=== PATIENT | male | born 1940 | race Caucasian/White ===

== ENCOUNTER 2019-01-30 15:47 | Inpatient (IN) ==
[2019-01-30 16:45] LABS: Basophils % 0.2 %; Eosinophils % 0.3 %; Immature Granulocytes % 1.1 % (0-4); Lymphocytes # 0.6 K/mcL (0.6-4.6); Lymphocytes % 4.8 %; Mean Corpuscular HGB Conc 30.3 g/dL (31.6-35.5); Mean Corpuscular Hemoglobin 29.1 pg (28.0-33.3); Mean Corpuscular Volume 95.9 fL (83.0-100.0); Mean Platelet Volume 8.5 fL (9.4-12.4); Monocytes # 0.7 K/mcL (0.0-1.3); Neutrophils # 10.8 K/mcL (1.6-8.9); Platelet Count 276 K/mcL (140-400); Red Blood Count 3.44 M/mcL (4.19-5.50); Red Cell Distribution Width 15.8 % (11.5-14.5); Segmented Neutrophils % 87.6 %; White Blood Count 12.4 K/mcL (4.3-11.1)
[2019-01-30 16:48] LABS: VBG HCO3 21 mEq/L (21-27); VBG PCO2 44 mmHg (41-51); VBG PH 7.29 pH Units (7.32-7.42); VBG PO2 187 mmHg (25-50)
[2019-01-30 16:52] LABS: INR 1.1; Prothrombin Time 12.1 Seconds (9.4-12.1)
[2019-01-30 16:55] LABS: Activated Partial Thrombo Time 35.5 Seconds (26.0-36.0)
[2019-01-30 17:07] LABS: Alanine Aminotransferase 21 Units/L (7-52); Albumin 3.4 g/dL (3.5-5.7); Albumin/Globulin Ratio 1.2 (1.1-2.2); Alkaline Phosphatase 80 Units/L (34-104); Aspartate Amino Transferase 17 Units/L (13-39); BUN/Creatinine Ratio 20 (6-26); Bilirubin,Indirect 0.3 mg/dL (0.0-1.2); Bilirubin,Total 0.3 mg/dL (0.3-1.0); Blood Urea Nitrogen 18 mg/dL (8-23); Calcium 8.8 mg/dL (8.6-10.3); Carbon Dioxide 20 mEq/L (23-29); Chloride 107 mEq/L (98-107); Globulin 2.9 g/dL (2.4-3.5); Glucose 113 mg/dL (70-105); Lipase 20 Units/L (11-82); Magnesium 1.8 mg/dL (1.6-2.6); Osmolality,Calculated 283 (280-300); Potassium 5.5 mEq/L (3.5-5.1); Sodium 135 mEq/L (136-145); Total Protein 6.3 g/dL (6.4-8.9); Troponin I < 0.03 ng/mL (< 0.04); eGFR For African Americans > 60 (> 60); eGFR For Non-African Americans > 60 (> 60)
[2019-01-30] MEDS ORDERED: Naloxone 0.4 MG/ML INJ IVP PRN (17:54)
[2019-01-30] MEDS ORDERED: *HR* OxyCODONE/APAP 5/325 TABLET PO PRN (17:58)
[2019-01-30] MEDS ORDERED: Furosemide 40 MG/4 ML VIAL IVP SCH (18:00)
[2019-01-30] MEDS ORDERED: tiZANidine 4 MG TABLET PO PRN (21:00)
[2019-01-30] MEDS ORDERED: NON-FORMULARY MEDICATION 1 EACH EACH (Potassium Chloride [Klor-Con 10] 20 MEQ) PO SCH (21:00)
[2019-01-31 04:22] LABS: Basophils % 0.3 %; Eosinophils # 0.2 K/mcL (0.0-0.6); Eosinophils % 1.9 %; Hematocrit 30.2 % (37.5-50.1); Immature Granulocytes % 1.1 % (0-4); Lymphocytes # 0.9 K/mcL (0.6-4.6); Lymphocytes % 7.5 %; Mean Corpuscular HGB Conc 29.8 g/dL (31.6-35.5); Mean Corpuscular Hemoglobin 29.6 pg (28.0-33.3); Mean Corpuscular Volume 99.3 fL (83.0-100.0); Mean Platelet Volume 8.7 fL (9.4-12.4); Monocytes # 1.1 K/mcL (0.0-1.3); Monocytes % 9.9 %; Neutrophils # 8.9 K/mcL (1.6-8.9); Platelet Count 272 K/mcL (140-400); Red Blood Count 3.04 M/mcL (4.19-5.50); Red Cell Distribution Width 15.9 % (11.5-14.5); Segmented Neutrophils % 79.3 %; White Blood Count 11.3 K/mcL (4.3-11.1)
[2019-01-31 04:48] LABS: Troponin I < 0.03 ng/mL (< 0.04)
[2019-01-31 05:06] LABS: BUN/Creatinine Ratio 21 (6-26); Blood Urea Nitrogen 16 mg/dL (8-23); Calcium 8.5 mg/dL (8.6-10.3); Carbon Dioxide 19 mEq/L (23-29); Chloride 109 mEq/L (98-107); Glucose 82 mg/dL (70-105); Osmolality,Calculated 284 (280-300); Potassium 4.9 mEq/L (3.5-5.1); Sodium 137 mEq/L (136-145); eGFR For African Americans > 60 (> 60); eGFR For Non-African Americans > 60 (> 60)
[2019-01-31] MEDS: *HR* Heparin 5,000 UNIT/ML VIAL SQ SCH ×2 (06:29→16:19)
[2019-01-31] MEDS ORDERED: Perflutren Lipid Microsphere 1.3 ML in 0.9 % Sodium Chloride 8.7 ML IVP ONE (07:46)
[2019-01-31] MEDS ORDERED: hydrOXYzine pamoate 25 MG CAPSULE PO PRN ×2 (08:43→19:20)
[2019-01-31] MEDS: Furosemide 40 MG/4 ML VIAL IVP SCH ×2 (08:57→16:19)
[2019-01-31] MEDS ORDERED: amLODIPine 5 MG TABLET PO SCH (09:00)
[2019-01-31] MEDS ORDERED: predniSONE 10 MG TABLET PO SCH (09:00)
[2019-01-31 13:00] LABS: Bilirubin,Urine Negative (Negative); Blood,Urine Negative (Negative); Clarity,Urine Clear (Clear); Color,Urine Yellow (Yellow); Glucose,Urine (UA) Normal (Normal); Ketones,Urine Negative (Negative); Leukocyte Esterase,Urine Negative (Negative); Nitrite,Urine Negative (Negative); PH,Urine 5.5 pH Units (5.0-8.0); Protein,Urine Negative (Neg-Trace); Urobilinogen,Urine Normal (Normal)
[2019-01-31] MEDS ORDERED: *HR* LORazepam 2 MG/ML VIAL IVP ONE (16:28)
[2019-01-31 17:52] LABS: ABG Base Excess -3 mEq/L (-2 to 3); ABG HCO3 26 mEq/L (21-27); ABG Oxygen Saturation 87 % (95-98); ABG PCO2 67 mmHg (35-45); ABG PO2 67 mmHg (85-104); ABG TCO2 28 mEq/L (20-26)
[2019-01-31] MEDS ORDERED: Naloxone 0.4 MG/ML INJ IVP PRN (19:20)
[2019-01-31] MEDS ORDERED: tiZANidine 4 MG TABLET PO PRN (19:20)
[2019-01-31 22:00] LABS: ABG Base Excess -1 mEq/L (-2 to 3); ABG HCO3 25 mEq/L (21-27); ABG Oxygen Saturation 96 % (95-98); ABG PCO2 50 mmHg (35-45); ABG PH 7.31 pH Units (7.32-7.45); ABG PO2 92 mmHg (85-104); ABG TCO2 27 mEq/L (20-26); Blood Gas Modality BiLevel
[2019-02-01 02:18] LABS: Basophils % 0.3 %; Eosinophils # 0.1 K/mcL (0.0-0.6); Eosinophils % 0.9 %; Hematocrit 30.4 % (37.5-50.1); Hemoglobin 9.3 g/dL (12.9-16.9); Immature Granulocytes % 0.7 % (0-4); Lymphocytes # 0.6 K/mcL (0.6-4.6); Lymphocytes % 6.2 %; Mean Corpuscular HGB Conc 30.6 g/dL (31.6-35.5); Mean Corpuscular Hemoglobin 29.6 pg (28.0-33.3); Mean Corpuscular Volume 96.8 fL (83.0-100.0); Mean Platelet Volume 8.5 fL (9.4-12.4); Monocytes # 0.8 K/mcL (0.0-1.3); Monocytes % 8.1 %; Neutrophils # 8.2 K/mcL (1.6-8.9); Platelet Count 253 K/mcL (140-400); Red Blood Count 3.14 M/mcL (4.19-5.50); Red Cell Distribution Width 15.7 % (11.5-14.5); Segmented Neutrophils % 83.8 %; White Blood Count 9.8 K/mcL (4.3-11.1)
[2019-02-01 02:27] LABS: BUN/Creatinine Ratio 21 (6-26); Blood Urea Nitrogen 14 mg/dL (8-23); Calcium 8.3 mg/dL (8.6-10.3); Carbon Dioxide 26 mEq/L (23-29); Chloride 110 mEq/L (98-107); Glucose 74 mg/dL (70-105); Osmolality,Calculated 289 (280-300); Potassium 3.4 mEq/L (3.5-5.1); Sodium 140 mEq/L (136-145); eGFR For African Americans > 60 (> 60); eGFR For Non-African Americans > 60 (> 60)
[2019-02-01] MEDS: *HR* Heparin 5,000 UNIT/ML VIAL SQ SCH ×2 (05:23→18:07)
[2019-02-01 05:29] LABS: ABG Base Excess 0 mEq/L (-2 to 3); ABG HCO3 26 mEq/L (21-27); ABG Oxygen Saturation 98 % (95-98); ABG PCO2 48 mmHg (35-45); ABG PH 7.34 pH Units (7.32-7.45); ABG PO2 103 mmHg (85-104); ABG TCO2 27 mEq/L (20-26)
[2019-02-01] MEDS ORDERED: Dexmedetomidine HCl 400 MCG/100 ML MLS IVC ONE (06:33)
[2019-02-01] MEDS: Dexmedetomidine HCl 400 MCG/100 ML MLS IVC SCH (06:36)
[2019-02-01 06:50] LABS: ABG Base Excess 0 mEq/L (-2 to 3); ABG HCO3 25 mEq/L (21-27); ABG Oxygen Saturation 90 % (95-98); ABG PCO2 39 mmHg (35-45); ABG PH 7.42 pH Units (7.32-7.45); ABG PO2 58 mmHg (85-104); ABG TCO2 26 mEq/L (20-26)
[2019-02-01] MEDS ORDERED: Aspirin Enteric Coated 325 MG Tablet PO SCH (09:00)
[2019-02-01] MEDS: Furosemide 40 MG/4 ML VIAL IVP SCH ×2 (09:17→16:37)
[2019-02-01] MEDS: amLODIPine 5 MG TABLET PO SCH (09:18)
[2019-02-01] MEDS: predniSONE 10 MG TABLET PO SCH (09:18)
[2019-02-01] MEDS: Aspirin Enteric Coated 325 MG Tablet PO SCH (09:18)
[2019-02-02] MEDS: Dexmedetomidine HCl 400 MCG/100 ML MLS IVC SCH ×3 (00:09→17:01)
[2019-02-02] MEDS: *HR* OxyCODONE/APAP 5/325 TABLET PO PRN ×3 (00:14→22:52)
[2019-02-02 01:06] LABS: Basophils % 0.3 %; Eosinophils # 0.2 K/mcL (0.0-0.6); Hematocrit 29.6 % (37.5-50.1); Hemoglobin 9.2 g/dL (12.9-16.9); Immature Granulocytes % 0.5 % (0-4); Lymphocytes # 0.9 K/mcL (0.6-4.6); Lymphocytes % 9.5 %; Mean Corpuscular HGB Conc 31.1 g/dL (31.6-35.5); Mean Corpuscular Hemoglobin 29.6 pg (28.0-33.3); Mean Corpuscular Volume 95.2 fL (83.0-100.0); Mean Platelet Volume 8.8 fL (9.4-12.4); Monocytes % 10.8 %; Neutrophils # 7.1 K/mcL (1.6-8.9); Platelet Count 255 K/mcL (140-400); Red Blood Count 3.11 M/mcL (4.19-5.50); Red Cell Distribution Width 15.9 % (11.5-14.5); Segmented Neutrophils % 76.9 %; White Blood Count 9.2 K/mcL (4.3-11.1)
[2019-02-02 01:24] LABS: BUN/Creatinine Ratio 18 (6-26); Blood Urea Nitrogen 14 mg/dL (8-23); Calcium 8.1 mg/dL (8.6-10.3); Carbon Dioxide 27 mEq/L (23-29); Chloride 103 mEq/L (98-107); Glucose 82 mg/dL (70-105); Osmolality,Calculated 286 (280-300); Potassium 3.4 mEq/L (3.5-5.1); Sodium 138 mEq/L (136-145); eGFR For African Americans > 60 (> 60); eGFR For Non-African Americans > 60 (> 60)
[2019-02-02] MEDS: *HR* Heparin 5,000 UNIT/ML VIAL SQ SCH ×2 (05:21→17:04)
[2019-02-02] MEDS: Furosemide 40 MG/4 ML VIAL IVP SCH ×2 (08:03→17:00)
[2019-02-02] MEDS: amLODIPine 5 MG TABLET PO SCH (08:10)
[2019-02-02] MEDS: predniSONE 10 MG TABLET PO SCH (08:11)
[2019-02-02] MEDS: Aspirin Enteric Coated 325 MG Tablet PO SCH (08:11)
[2019-02-02] MEDS ORDERED: Ipratropium/Albuterol Neb 3 ML IH PRN (11:03)
[2019-02-02] MEDS ORDERED: Albuterol 2.5 MG/3 ML NEBULIZER IH PRN (11:03)
[2019-02-03] MEDS: Dexmedetomidine HCl 400 MCG/100 ML MLS IVC SCH ×3 (00:21→11:13)
[2019-02-03 02:53] LABS: Basophils % 0.4 %; Eosinophils # 0.2 K/mcL (0.0-0.6); Eosinophils % 2.7 %; Hematocrit 29.3 % (37.5-50.1); Hemoglobin 9.3 g/dL (12.9-16.9); Immature Granulocytes % 0.4 % (0-4); Lymphocytes # 0.6 K/mcL (0.6-4.6); Lymphocytes % 8.3 %; Mean Corpuscular HGB Conc 31.7 g/dL (31.6-35.5); Mean Corpuscular Hemoglobin 30.2 pg (28.0-33.3); Mean Corpuscular Volume 95.1 fL (83.0-100.0); Mean Platelet Volume 8.9 fL (9.4-12.4); Monocytes # 0.8 K/mcL (0.0-1.3); Monocytes % 10.4 %; Platelet Count 267 K/mcL (140-400); Red Blood Count 3.08 M/mcL (4.19-5.50); Red Cell Distribution Width 15.9 % (11.5-14.5); Segmented Neutrophils % 77.8 %; White Blood Count 7.7 K/mcL (4.3-11.1)
[2019-02-03 03:07] LABS: BUN/Creatinine Ratio 20 (6-26); Blood Urea Nitrogen 17 mg/dL (8-23); Carbon Dioxide 28 mEq/L (23-29); Chloride 104 mEq/L (98-107); Potassium 3.7 mEq/L (3.5-5.1); Sodium 139 mEq/L (136-145); eGFR For African Americans > 60 (> 60)
[2019-02-03 03:08] LABS: Calcium 8.2 mg/dL (8.6-10.3); Glucose 117 mg/dL (70-105); Osmolality,Calculated 291 (280-300); eGFR For Non-African Americans > 60 (> 60)
[2019-02-03] MEDS: *HR* Heparin 5,000 UNIT/ML VIAL SQ SCH ×2 (05:27→17:49)
[2019-02-03] MEDS: predniSONE 10 MG TABLET PO SCH (08:49)
[2019-02-03] MEDS: Aspirin Enteric Coated 325 MG Tablet PO SCH (08:49)
[2019-02-03] MEDS: Furosemide 40 MG/4 ML VIAL IVP SCH ×2 (08:50→17:49)
[2019-02-03] MEDS: amLODIPine 5 MG TABLET PO SCH (08:50)
[2019-02-03] MEDS: Ipratropium/Albuterol Neb 3 ML IH SCH ×3 (10:50→20:15)
[2019-02-03] MEDS: Nystatin POWDER 30 GM BOTTLE TP SCH ×2 (11:13→20:10)
[2019-02-03] MEDS: predniSONE 20 MG TABLET PO SCH (13:17)
[2019-02-03] MEDS: Fluticasone Propionate Nasal 50 MCG/SPRAY BOTTLE NS SCH (13:18)
[2019-02-03] MEDS ORDERED: 0.9 % Sodium Chloride 250 ML ONE (13:31)
[2019-02-03] MEDS: *HR* OxyCODONE/APAP 5/325 TABLET PO PRN (17:45)
[2019-02-04] MEDS: Ipratropium/Albuterol Neb 3 ML IH SCH ×7 (00:13→23:21)
[2019-02-04 02:44] LABS: BUN/Creatinine Ratio 22 (6-26); Blood Urea Nitrogen 18 mg/dL (8-23); Calcium 8.4 mg/dL (8.6-10.3); Carbon Dioxide 28 mEq/L (23-29); Chloride 103 mEq/L (98-107); Glucose 106 mg/dL (70-105); Osmolality,Calculated 292 (280-300); Potassium 4.3 mEq/L (3.5-5.1); Sodium 140 mEq/L (136-145); eGFR For African Americans > 60 (> 60); eGFR For Non-African Americans > 60 (> 60)
[2019-02-04] MEDS: *HR* OxyCODONE/APAP 5/325 TABLET PO PRN ×2 (03:30→10:46)
[2019-02-04] MEDS: *HR* Heparin 5,000 UNIT/ML VIAL SQ SCH ×2 (05:21→17:20)
[2019-02-04] MEDS: Aspirin Enteric Coated 325 MG Tablet PO SCH (08:25)
[2019-02-04] MEDS: amLODIPine 5 MG TABLET PO SCH (08:25)
[2019-02-04] MEDS: predniSONE 20 MG TABLET PO SCH (08:25)
[2019-02-04] MEDS: Furosemide 40 MG/4 ML VIAL IVP SCH (08:25)
[2019-02-04] MEDS: Nystatin POWDER 30 GM BOTTLE TP SCH ×2 (08:26→21:33)
[2019-02-04] MEDS: Fluticasone Propionate Nasal 50 MCG/SPRAY BOTTLE NS SCH (08:26)
[2019-02-04] MEDS ORDERED: *HR* LORazepam Oral Conc 2 MG/ML SL PRN (13:59)
[2019-02-04] MEDS: *HR* OxyCODONE/APAP 5/325 TABLET PO SCH ×2 (15:22→21:33)
[2019-02-04] MEDS: Furosemide 40 MG TABLET PO SCH (17:19)
[2019-02-05] MEDS: Ipratropium/Albuterol Neb 3 ML IH SCH ×6 (03:30→23:38)
[2019-02-05] MEDS: *HR* Heparin 5,000 UNIT/ML VIAL SQ SCH (06:00)
[2019-02-05] MEDS: *HR* OxyCODONE/APAP 5/325 TABLET PO SCH ×2 (06:00→11:04)
[2019-02-05 07:09] LABS: BUN/Creatinine Ratio 20 (6-26); Blood Urea Nitrogen 16 mg/dL (8-23); Calcium 8.4 mg/dL (8.6-10.3); Carbon Dioxide 33 mEq/L (23-29); Chloride 100 mEq/L (98-107); Glucose 86 mg/dL (70-105); Osmolality,Calculated 294 (280-300); Potassium 3.4 mEq/L (3.5-5.1); Sodium 142 mEq/L (136-145); eGFR For African Americans > 60 (> 60); eGFR For Non-African Americans > 60 (> 60)
[2019-02-05] MEDS: predniSONE 20 MG TABLET PO SCH (09:05)
[2019-02-05] MEDS: Furosemide 40 MG TABLET PO SCH ×2 (09:06→17:30)
[2019-02-05] MEDS: Aspirin Enteric Coated 325 MG Tablet PO SCH (09:06)
[2019-02-05] MEDS: amLODIPine 5 MG TABLET PO SCH (09:06)
[2019-02-05] MEDS: Fluticasone Propionate Nasal 50 MCG/SPRAY BOTTLE NS SCH (09:11)
[2019-02-05] MEDS: Nystatin POWDER 30 GM BOTTLE TP SCH ×2 (09:28→21:38)
[2019-02-05] MEDS ORDERED: *HR* OxyCODONE/APAP 10/325 TABLET PO PRN (12:56)
[2019-02-05] MEDS ORDERED: Morphine Sulfate ER (12 HR) 30 MG TABLET.ER PO ONE (13:00)
[2019-02-05] MEDS: *HR* OxyCODONE/APAP 5/325 TABLET PO PRN (17:33)
[2019-02-05] MEDS: Sennosides/Docusate Sodium TABLET PO SCH (21:37)
[2019-02-05] MEDS: Morphine Sulfate ER (12 HR) 30 MG TABLET.ER PO SCH (21:38)
[2019-02-06] MEDS: Ipratropium/Albuterol Neb 3 ML IH SCH ×3 (03:23→11:02)
[2019-02-06 04:50] LABS: Basophils % 0.1 %; Eosinophils % 0.5 %; Hematocrit 28.5 % (37.5-50.1); Hemoglobin 8.7 g/dL (12.9-16.9); Immature Granulocytes % 1.5 % (0-4); Lymphocytes # 0.9 K/mcL (0.6-4.6); Lymphocytes % 11.6 %; Mean Corpuscular HGB Conc 30.5 g/dL (31.6-35.5); Mean Corpuscular Hemoglobin 28.8 pg (28.0-33.3); Mean Corpuscular Volume 94.4 fL (83.0-100.0); Mean Platelet Volume 8.5 fL (9.4-12.4); Monocytes # 0.9 K/mcL (0.0-1.3); Monocytes % 11.6 %; Neutrophils # 5.5 K/mcL (1.6-8.9); Platelet Count 270 K/mcL (140-400); Red Blood Count 3.02 M/mcL (4.19-5.50); Red Cell Distribution Width 14.8 % (11.5-14.5); Segmented Neutrophils % 74.7 %; White Blood Count 7.4 K/mcL (4.3-11.1)
[2019-02-06 05:13] LABS: BUN/Creatinine Ratio 20 (6-26); Blood Urea Nitrogen 15 mg/dL (8-23); Calcium 8.3 mg/dL (8.6-10.3); Carbon Dioxide 33 mEq/L (23-29); Chloride 96 mEq/L (98-107); Glucose 83 mg/dL (70-105); Osmolality,Calculated 286 (280-300); Potassium 3.2 mEq/L (3.5-5.1); Sodium 138 mEq/L (136-145); eGFR For African Americans > 60 (> 60); eGFR For Non-African Americans > 60 (> 60)
[2019-02-06] MEDS: Morphine Sulfate ER (12 HR) 30 MG TABLET.ER PO SCH (06:20)
[2019-02-06 07:04] VITALS: BP 128/71
[2019-02-06] MEDS: amLODIPine 5 MG TABLET PO SCH (07:26)
[2019-02-06] MEDS: Aspirin Enteric Coated 325 MG Tablet PO SCH (07:26)
[2019-02-06] MEDS: *HR* OxyCODONE/APAP 5/325 TABLET PO PRN (07:26)
[2019-02-06] MEDS: Furosemide 40 MG TABLET PO SCH (07:26)
[2019-02-06] MEDS: Sennosides/Docusate Sodium TABLET PO SCH (07:27)
[2019-02-06] MEDS: Fluticasone Propionate Nasal 50 MCG/SPRAY BOTTLE NS SCH (07:27)
[2019-02-06] MEDS: predniSONE 20 MG TABLET PO SCH (07:27)
[2019-02-06] MEDS: Nystatin POWDER 30 GM BOTTLE TP SCH (07:28)
== END 2019-02-06 13:09 | disposition hospice, home (50) | DRG 291 ==
LOC: EMEROOARM 15:47 → 3BNU 15:47 → SUATTDRO 01-31 11:23 → 2NNU 01-31 19:50 → 2ANU 02-04 18:19
PROVIDERS: ADMIT Internal Medicine; ATTEND Family Medicine